=== PATIENT | male | born 1975 | race Two or more races ===

== ENCOUNTER 2023-11-25 14:06 | Inpatient (IN) | payer OTHER ==
[~2023-11-25] VITALS: Ht 185.4 cm; Wt 70.3 kg
--- NOTE | 2023-11-25 15:08 | NUR ---
SE RECIBE PACIENTE MASCULINO ALERTA Y ORIENTADO X 3 ESFERAS EL CUAL INDICA QUE FUE REFERIDO POR EL DR.JAROLD GARCIA DE [facility] POR PNEUMONIA. REFERIDO PARA ADMISION Y CONSULTA CON INFECTOLOGO . PACIENTE REFIERE QUE PRESENTA TOS CON ESPUTO KATIE, FIEBRE, DOLOR DE CUERPO. INDICA QUE LLEVA CON LOS SINTOMAS DOS SEMANAS Y QUE CAMEJO ESTADO BAJO TRATAMIENTO MEDICO AJ NO CAMEJO ELIZABETH. PACIENTE CON HX DE HIV.
[2023-11-25] MEDS ORDERED: GUAIFENESIN/DEXTROMETHORPHAN 10ML BLIST.PACK PO ONE ×2 (15:45→16:04)
[2023-11-25] MEDS ORDERED: 0.9 % SODIUM CHLORIDE 500 ML IV ONE (15:45)
[2023-11-25] MEDS ORDERED: IPRATROPIUM/ALBUTEROL SULFATE 3 ML AMPUL.NEB IH SCH (15:45)
[2023-11-25] MEDS ORDERED: FAMOTIDINE/PF 20 MG/2 ML VIAL IV ONE (15:45)
[2023-11-25] MEDS ORDERED: METHYLPREDNISOLONE SOD SUCC 125 MG VIAL IV ONE (15:45)
[2023-11-25] MEDS ORDERED: ONDANSETRON HCL 2 MG/ML VIAL IV ONE (15:45)
--- NOTE | 2023-11-25 15:58 | NUR ---
PACIENTE ALERTA Y ORIENTADO X3. SE ORIENTA AL MISMO SOBRE TX MEDICO Y REFIERE ENTENDER. SE REALIZAN MUESTRAS DE LAB BAJO MEDIDAS ASEPTICAS, SE REALIZA ACCESO VENOSO Y SE ADMINISTRAN MEDICAMENTOS RENETTA ORDEN MEDICA POR MISS KALA RN.
[2023-11-25] MEDS ORDERED: ONDANSETRON HCL 2 MG/ML VIAL ONE (16:03)
[2023-11-25] MEDS ORDERED: FAMOTIDINE/PF 20 MG/2 ML VIAL ONE ×2 (16:04→20:39)
[2023-11-25] MEDS ORDERED: METHYLPREDNISOLONE SOD SUCC 125 MG VIAL ONE (16:04)
[2023-11-25] MEDS ORDERED: IPRATROPIUM/ALBUTEROL SULFATE 3 ML AMPUL.NEB IH ONE (16:21)
[2023-11-25] MEDS ORDERED: IPRATROPIUM BROMIDE 0.5 MG/2.5 ML AMPUL.NEB IH ONE ×2 (16:22→21:20)
[2023-11-25] MEDS ORDERED: ALBUTEROL SULFATE 3 ML/2.5 MG AMPUL.NEB IH ONE (16:22)
[2023-11-25 16:26] LABS: HEMATOCRIT 38.2 % (39.0-48.0); MEAN CELL VOLUME 76.5 fL (80.0-100.00); PLATELET COUNT 264 K/uL (150-450); RED CELL DISTRIBUTION WIDTH 14.1 % (11.5-14.5)
[2023-11-25 17:02] LABS: ALBUMIN 3.6 gm/dL (3.4-5.0); BILIRUBIN TOTAL 0.48 mg/dL (0.3-1.2); CALCIUM 9.3 mg/dL (8.5-10.1); CREATININE SERUM 0.95 mg/dL (0.70-1.30); GFR 85.35; GLOBULINA 4.6 G/DL (2.4-3.5); POTASSIUM 3.86 mEq/L (3.5-5.1); TOTAL PROTEIN 8.2 gm/dL (6.4-8.2)
[2023-11-25 17:03] LABS: C-REACTIVE PROTEIN 0.39 MG/DL (0.00-0.29)
[2023-11-25] MEDS ORDERED: CEFTRIAXONE SODIUM 2,000 MG VIAL ONE (17:57)
[2023-11-25] MEDS ORDERED: CEFTRIAXONE SODIUM 2,000 MG VIAL IV ONE (18:00)
[2023-11-25 18:10] LABS: PH,URINE 6.5 (5.0-8.0); URINE APPEARANCE Clear; URINE BILIRRUBIN Negative (NEGATIVE); URINE BLOOD Small; URINE COLOR Yellow; URINE GLUCOSE Negative (NEGATIVE); URINE KETONE Negative (NEGATIVE); URINE LEUKOCYTE Negative; URINE NITRATE Negative; URINE PROTEIN Negative (NEGATIVE)
[2023-11-25 18:11] LABS: URINE EPITHELIAL CELLS 4.6 uL (0.0-38.8); URINE RBC 54.3 uL (0.0-20.8); URINE WBC 5.3 uL (0.0-23.2)
[2023-11-25 18:12] LABS: URINE CAST 0.15 uL (0.0-1.40)
[2023-11-25] MEDS ORDERED: 0.9 % SODIUM CHLORIDE 1,000 ML IV SCH (19:15)
[2023-11-25] MEDS ORDERED: AZITHROMYCIN 500 MG in DEXTROSE 5 % IN WATER 250 ML IV SCH (19:15)
[2023-11-25] MEDS ORDERED: FAMOTIDINE/PF 20 MG in 0.9 % SODIUM CHLORIDE 8 ML IV PUSH SCH (19:16)
[2023-11-25] MEDS ORDERED: BIKTARVY PO SCH (19:17)
[2023-11-25] MEDS ORDERED: ACETAMINOPHEN 500 MG GEL..CAP PO PRN (19:30)
[2023-11-25] MEDS ORDERED: ONDANSETRON HCL 4 MG in 0.9 % SODIUM CHLORIDE 50 ML IV PRN (19:30)
[2023-11-25] MEDS ORDERED: AZITHROMYCIN 500 MG VIAL IV ONE (20:38)
[2023-11-25] MEDS ORDERED: GUAIFEN/DEXTROMETHORPHAN/PE 10 ML BLIST.PACK PO ONE (20:38)
[2023-11-25] MEDS ORDERED: METHYLPREDNISOLONE SOD SUCC 40 MG VIAL ONE (20:38)
[2023-11-25] MEDS ORDERED: LEVALBUTEROL HCL 1.25 MG/3 ML SOLUTION IH SCH (21:00)
[2023-11-25] MEDS ORDERED: METHYLPREDNISOLONE SOD SUCC 40 MG VIAL IV SCH (21:00)
[2023-11-25] MEDS ORDERED: IPRATROPIUM BROMIDE 0.5 MG/2.5 ML AMPUL.NEB IH SCH (21:00)
[2023-11-25] MEDS ORDERED: GUAIFEN/DEXTROMETHORPHAN/PE 10 ML BLIST.PACK PO SCH (21:00)
[2023-11-25] MEDS ORDERED: LEVALBUTEROL HCL 0.63 MG/3 ML SOLUTION IH ONE (21:20)
[2023-11-25 21:34] LABS: INR 1.02; PARTIAL THROMBOPLASTIN TIME 25.9 SECONDS (22.0-34.0); PROTHROMBIN TIME 10.7 SECONDS (9.0-11.5)
[2023-11-26] MEDS ORDERED: SULFAMETHOXAZOLE/TRIMETHOPRIM DS 1 TAB PO SCH (01:00)
[2023-11-26] MEDS ORDERED: GUAIFEN/DEXTROMETHORPHAN/PE 10 ML BLIST.PACK PO ONE ×2 (01:08→04:27)
[2023-11-26] MEDS ORDERED: CEFTRIAXONE SODIUM 2,000 MG in 0.9 % SODIUM CHLORIDE 100 ML IV SCH (09:00)
[2023-11-26] MEDS ORDERED: CEFTRIAXONE SODIUM 2,000 MG VIAL ONE (09:20)
[2023-11-26] MEDS ORDERED: METHYLPREDNISOLONE SOD SUCC 40 MG VIAL ONE (09:20)
[2023-11-26] MEDS ORDERED: TUBERCULIN,PURIF.PROT.DERIV. 10 SKIN.TEST SKIN.TEST ID NR (14:45)
[2023-11-26] MEDS ORDERED: MONTELUKAST SODIUM 10 MG TABLET PO SCH (17:00)
[2023-11-26] MEDS ORDERED: AZITHROMYCIN 500 MG in 0.9 % SODIUM CHLORIDE 250 ML IV SCH (17:00)
[2023-11-27 08:30] LABS: PLATELET ESTIMATE NORMAL (NORMAL)
[2023-11-27] MEDS ORDERED: FAMOTIDINE/PF 20 MG/2 ML VIAL ONE (08:35)
== END 2023-11-27 12:42 | disposition home or self-care (01) | DRG 975 ==
LOC: ER 14:08 → SEC-K 19:45 → MEDJ 11-26 12:20
PROVIDERS: General Practice; Internal Medicine Infectious Disease; Nurse Practitioner Family; ADMIT Internal Medicine; ATTEND Internal Medicine
PROC: BW24ZZZ Computerized Tomography (CT Scan) of Chest and Abdomen (ICD-10-PCS; principal; 2023-11-25)
DX: J18.9 Pneumonia, unspecified organism (principal); K62.5 Hemorrhage of anus and rectum; B20 Human immunodeficiency virus [HIV] disease